=== PATIENT | female | born 1960 | race African-American/Black ===

== ENCOUNTER 2019-05-14 11:56 | Emergency (ER) | payer MEDICAID ==
[~2019-05-14] VITALS: Ht 157.5 cm; Wt 86.0 kg
[2019-05-14] MEDS ORDERED: SODIUM CHLORIDE 0.9% 2,600 ML IV ONE (12:44)
[2019-05-14] MEDS ORDERED: 0.9% SODIUM CHLORIDE 10 ML SYRINGE IVP PRN (12:45)
[2019-05-14] MEDS ORDERED: ACETAMINOPHEN 500 MG TABLET PO ONE (12:45)
[2019-05-14 13:14] LABS: BASOPHILS % (AUTO) 0.4 % (0.0-2.0); EOSINOPHILS % (AUTO) 0.7 % (1.0-6.0); HEMATOCRIT 35.5 % (36-46); HEMOGLOBIN 11.6 g/dL (12.0-16.0); LYMPHOCYTES # (AUTO) 0.5 K/uL (1.0-4.8); LYMPHOCYTES % (AUTO) 7.6 % (22.0-44.0); MEAN CORPUSCULAR HEMOGLOBIN 26.2 pg (26.0-34.0); MEAN CORPUSCULAR HGB CONC 32.8 G/dL (31.0-37.0); MEAN CORPUSCULAR VOLUME 80 fL (80-100); MONOCYTES # (AUTO) 0.7 K/uL (0.1-1.0); MONOCYTES % (AUTO) 11.4 % (2.0-9.0); NEUTROPHILS # (AUTO) 4.8 K/uL (1.8-7.7); NEUTROPHILS % (AUTO) 79.9 % (40.0-70.0); PLATELET COUNT (AUTO) 183 K/uL (150-450); RED BLOOD CELL COUNT(AUTO) 4.44 MIL/uL (4.00-5.20); RED CELL DISTRIBUTION WIDTH 14.4 % (11.5-14.5)
[2019-05-14] MEDS ORDERED: ACETAMINOPHEN 1000 MG/ISO-OSM 100 ML IV ONE (13:15)
[2019-05-14] MEDS ORDERED: ONDANSETRON HCL 4 MG/2 ML VIAL IVP ONE (13:15)
[2019-05-14 13:22] LABS: CALCIUM, TOTAL 7.5 mg/dL (8.8-10.5); CREATININE 1.09 mg/dL (0.60-1.30); POTASSIUM 3.7 mmol/L (3.5-5.1)
[2019-05-14 13:27] LABS: INR 1.1 (0.9-1.1); PROTHROMBIN TIME 10.7 SEC (9.4-11.6)
[2019-05-14 13:28] LABS: ALBUMIN 3.9 g/dL (3.4-5.0); BILIRUBIN,TOTAL 0.5 mg/dL (0.1-1.0); TOTAL PROTEIN, SERUM 7.8 g/dL (6.4-8.2)
[2019-05-14 13:30] LABS: LACTIC ACID 0.7 mmol/L (0.4-2.0)
[2019-05-14] MEDS ORDERED: ALBUTEROL SULFATE 2.5 MG/0.5 ML NEB SOLUTION NEB ONE (13:45)
[2019-05-14] MEDS ORDERED: IPRATROPIUM BROMIDE 0.5 MG/2.5 ML NEB SOLUTION NEB ONE (13:45)
[2019-05-14 13:51] LABS: GLUCOSE,POINT OF CARE 101 MG/DL (70-110)
[2019-05-14 15:06] LABS: APPEARANCE,URINE CLEAR (CLEAR); BILIRUBIN,URINE NEGATIVE (NEGATIVE); GLUCOSE, URINE (UA) NEGATIVE (NEGATIVE); KETONES,URINE NEGATIVE (NEGATIVE); LEUKOCYTE ESTERASE ,URINE NEGATIVE (NEGATIVE); NITRATE,URINE NEGATIVE (NEGATIVE); OCCULT BLOOD,URINE NEGATIVE (NEGATIVE); PH,URINE 5.5 (5.0-8.0); PROTEIN,URINE NEGATIVE (NEGATIVE); UROBILINOGEN,URINE 0.2 mg/dL (<=1.0)
[2019-05-14 15:27] LABS: INFLUENZA TYPE A NEGATIVE FOR TYPE A (NEGATIVE)
[2019-05-14 15:28] LABS: INFLUENZA TYPE B NEGATIVE FOR TYPE B (NEGATIVE)
[2019-05-14] MEDS ORDERED: ALBUTEROL SULFATE HFA 90 MCG/PUFF 8 GM INHALER IH ONE (16:15)
[2019-05-14] MEDS ORDERED: AZITHROMYCIN 200 MG/5 ML SUSPENSION ORAL.SYG PO ONE (16:45)
[2019-05-14] MEDS ORDERED: KETOROLAC TROMETHAMINE 30 MG/ML VIAL IVP ONE (16:45)
[2019-05-14 18:15] VITALS: BP 129/79
== END 2019-05-14 17:12 | disposition home or self-care (01) ==
LOC: EMS 12:00
DX: J18.9 Pneumonia, unspecified organism (principal); R11.2 Nausea with vomiting, unspecified; F41.9 Anxiety disorder, unspecified; F32.9 Major depressive disorder, single episode, unspecified; E11.9 Type 2 diabetes mellitus without complications
CPT/HCPCS: 36415; 71045; 80053; 81003; 82962; 83605; 83880; 85025; 85610; 87040; 87804; 93005; 94640; 96361; 96374; 96375; 99285; J0131; J1885; J2405; J7030; J3535